=== PATIENT | male | born 1950 | race Asian ===

== ENCOUNTER 2017-09-02 01:26 | Inpatient (IN) | payer OTHER ==
[2017-09-02 02:36] LABS: Mean Corpuscular HGB CONC 33.1 g/dL (32.0-36.0); Mean Corpuscular Hemoglobin 32.3 pg (27.0-31.0); Mean Corpuscular Volume 97.6 fl (80.0-94.0); Mean Platelet Volume 6.3 fL (7.4-10.4); Platelet Count 227 thou/uL (130-400); RBC Distribution Width 11.7 % (11.5-14.5); Red Blood Cell (RBC) Count 4.03 mill/uL (4.70-6.10); White Blood Cell (WBC) Count 36.2 thou/uL (4.8-10.8)
[2017-09-02 03:04] LABS: ALT (SGPT) 32 U/L (8-55); AST (SGOT) 17 U/L (5-34); Albumin 2.7 g/dL (3.4-4.8); Alkaline Phosphatase 175 U/L (40-150); Anion Gap 14 mmol/L (10-20); BUN (Urea Nitrogen) 26 mg/dL (8.4-25.7); Bilirubin, Total 2.1 mg/dL (0.2-1.2); Calc. Creatinine Clearance 0 mL/min (70-130); Calcium 7.9 mg/dL (7.8-10.44); Carbon Dioxide 21 mmol/L (23-31); Chloride 99 mmol/L (98-107); Estimated GFR-MDRD 43; Globulin 2.7 g/dL (2.4-3.5); Glucose 137 mg/dL (80-115); Potassium 3.8 mmol/L (3.5-5.1); Protein, Total 5.4 g/dL (5.8-8.1); Sodium 130 mmol/L (136-145)
[2017-09-02 03:17] LABS: Band 28 % (5-11); MDiff Complete? YES; Monocytes 3 % (0-10); Neutrophil 69 % (42-75)
[2017-09-02] MEDS ORDERED: Bisacodyl 5 MG TAB PO PRN (03:55)
[2017-09-02] MEDS ORDERED: Acetaminophen 650 MG Suppository PR PRN (03:55)
[2017-09-02] MEDS ORDERED: Vancomycin HCl 1 GM in Premix Bag 1 BAG IVPB SCH ×2 (04:00→04:15)
[2017-09-02] MEDS ORDERED: Piperacillin/Tazobactam 4.5 GM in Sodium Chloride 0.9% 100 ML IVPB SCH (04:00)
[2017-09-02] MEDS ORDERED: Sodium Chloride 0.9% 1,000 ML IV SCH (04:00)
--- NOTE | 2017-09-02 04:59 | HP ---
PRIMARY CARE PHYSICIAN: Shae Garcia MD CHIEF COMPLAINT: Fever and weakness. HISTORY OF PRESENT ILLNESS: Mr. Cantrell is a pleasant 67-year-old gentleman who was seen at [facility] on 09/02/2017 following transfer from [facility]. He speaks only Mandarin. His daughter who was present at bedside and was diplomatic interpreter/translator for this clinical encounter. Over the last couple of days, Mr. Cantrell has had problems still worsening generalized weakness. He also reportedly had fever. He denies any dysuria or other urinary symptoms. He denies any chest pain. He reports having abdominal pain. He describes that he does not have abdominal pain at this time, but it was a sensation of bloating when he had it. REVIEW OF SYSTEMS: The following complete review of systems was negative, unless otherwise mentioned in the HPI or below: Constitutional: Weight loss or gain, ability to conduct usual activities. Skin: Rash, itching. Eyes: Double vision, pain. ENT/Mouth: Nose bleeding, neck stiffness, pain, tenderness. Cardiovascular: Palpitations, dyspnea on exertion, orthopnea. Respiratory: Shortness of breath, wheezing, cough, hemoptysis, fever or night sweats. Gastrointestinal: Poor appetite, abdominal pain, heartburn, nausea, vomiting, constipation, or diarrhea. Genitourinary: Urgency, frequency, dysuria, nocturia. Musculoskeletal: Pain, swelling. Neurologic/Psychiatric: Anxiety, depression. Allergy/Immunologic: Skin rash, bleeding tendency. PAST MEDICAL HISTORY: Significant for hypertension. PAST SURGICAL HISTORY: None. SOCIAL HISTORY: No history of tobacco use, alcohol use, or recreational drug use. CODE STATUS: I discussed his code status with his daughter. He is FULL CODE. ALLERGIES: No known drug allergies. CURRENT MEDICATIONS: He takes an antihypertensive medication, but is unable to recall the name of the medication. FAMILY HISTORY: No family history of premature coronary artery disease. PHYSICAL EXAMINATION: GENERAL: Mr. Cantrell is awake and alert, not in acute distress. VITAL SIGNS: Blood pressure is 115/79, pulse is 99, he is breathing at rate of 20 and saturating 96% on room air. He is afebrile here. At [place], he had a pulse of 117 and temperature of 100.7 degrees Fahrenheit. EYES: He has scleral icterus. No conjunctival pallor. ENT: Dry mucosal membranes. No oropharyngeal erythema or exudates. NECK: Supple, nontender, normal range of movement, trachea is midline. RESPIRATORY: Accessory muscles of breathing are not active. Chest wall movements are symmetric bilaterally. LUNGS: Clear to auscultation without wheeze, rhonchi, or crepitations. CARDIOVASCULAR: S1 and S2 are heard, regular. LUNGS: Peripheral pulses palpable. No carotid bruit, no pericardial rub. ABDOMEN: Soft, nontender, bowel sounds heard. No hepatomegaly, no splenomegaly. NEUROLOGIC: Cranial nerves II through XII intact. Deep tendon reflexes are 2+. PSYCHIATRIC: Normal mood, normal affect. Patient is oriented to person and place. MUSCULOSKELETAL: Power is 5/5 in all 4 extremities. SKIN: No rashes or subcutaneous nodules. LYMPHATIC: No cervical lymphadenopathy. LABORATORY DATA: Mr. Cantrell's labs and investigations were reviewed. He had a CT scan of the abdomen and pelvis at this emergency room. The emergency room physician has been notified by Radiology Service that the patient has an L1 transverse process, soft tissue mass. He also has a lung mass. He also has left-sided pyelonephritis. He has decreased sodium of 130, normal potassium, normal anion gap, elevated blood urea nitrogen of 26, elevated creatinine of 1.61, elevated lactic acid level of 2.3, elevated total bilirubin of 2.1, normal potassium, normal AST, normal ALT, elevated alkaline phosphatase of 175, elevated BNP of 206, leukocytosis with 36,200 white cells, of which 69% are neutrophils and 28% are bands, macrocytic anemia with hemoglobin of 13, normal platelet count and urinalysis that is positive for protein, blood, nitrite, bilirubin, and leukocyte esterase. ASSESSMENT AND PLAN: Mr. Cantrell is a pleasant 67-year-old gentleman who was seen at [facility] on 09/02/2017 following transfer from emergency room at [place]. His problem list includes: 1. Sepsis: Most likely secondary to urinary tract infection, although patient denies any urinary symptoms at this time. He will be admitted to the hospital and treated with intravenous fluids as well as broad spectrum antibiotics. He has been started on Zosyn and vancomycin, we will continue the same. 2. Abnormal liver function tests. Could be secondary to sepsis. We will recheck; if not improving, patient may need further workup. 3. Renal insufficiency: Likely prerenal, he gives history of not eating or drinking well over the last couple of days. We will provide him intravenous hydration and recheck his creatinine. 4. Hypertension: Monitor vital signs, titrate antihypertensives as needed. 5. Lung mass and L1 transverse process mass: The patient will need further workup. He received intravenous contrast for today's CT scan. We will provide him intravenous hydration and attempt CT scan of the chest on 09/03/2017 to evaluate lung mass and look for any additional evidence of tumors. 6. Hyponatremia: Provide normal saline and recheck sodium. Many thanks for allowing me to participate in your patient's care. Please feel free to contact me with any questions or concerns. LEVEL OF RISK: Moderate. LEVEL OF COMPLEXITY: Moderate. MTDD
[2017-09-02] MEDS ORDERED: ISOVUE-370 76%-LOCM 1 ML ONE (06:16)
[2017-09-02 06:32] LABS: Lactic Acid 2.8 mmol/L (0.5-2.2)
--- NOTE | 2017-09-02 08:23 | CT ---
PRELIMINARY REPORT/[facility]/EMERGENCY AFTER HOURS PROCEDURE: EXAM: CT Abdomen and Pelvis With Intravenous Contrast EXAM DATE/TIME: Exam ordered 09/02/2017 3:05 AM CLINICAL HISTORY: 67 years old, male; Pain; Abdominal pain; Generalized TECHNIQUE: Axial computed tomography images of the abdomen and pelvis with intravenous contrast. Coronal reformatted images were created and reviewed. CONTRAST: 60 mL of ISOVUE administered intravenously. COMPARISON: No relevant prior studies available. FINDINGS: Lower thorax: There is a 3.1 cm mass like structure at the RIGHT lung base which is nonspecific and m ay represent a pulmonary mass or round atelectasis. There are trace bilateral pleural effusions with dependent atelectasis. ABDOMEN: Liver: There are no focal liver lesions present. Gallbladder and bile ducts: The gallbladder is normal. There is no evidence of biliary ductal dilatio n. No calcified stones. Pancreas: There is nonspecific inflammatory stranding surrounding the tail of the pancreas probably r elated to adjacent acute renal process. No ductal dilation. Spleen: The spleen is normal. Adrenals: The adrenal glands are normal. Kidneys and ureters: There is striated nephrogram involving the LEFT kidney suspicious for acute pyel onephritis. The right kidney is normal. Stomach and bowel: The stomach is normal. No obstruction. No mucosal thickening. Appendix: A normal appendix is identified. PELVIS: Bladder: The bladder is normal. Reproductive: The prostate gland demonstrates nonspecific parenchymal calcifications and mild enlarge ment. ABDOMEN and PELVIS: Intraperitoneal space: Normal. No free air. No significant fluid collection. Bones/joints: There is an expansile soft tissue mass involving the transverse process at L1 on the RI GHT suspicious for neoplasm. There is no spinal canal involvement. No acute fracture. No dislocation. Soft tissues: Normal. Vasculature: Normal. No abdominal aortic aneurysm. Lymph nodes: Normal. No enlarged lymph nodes. IMPRESSION: 1. There is striated nephrogram involving the LEFT kidney suspicious for acute pyelonephritis. 2. There is a soft tissue mass involving the transverse process at L1 on the RIGHT suspicious for yesenia plasm. 3. There is a 3.1 cm mass like structure at the RIGHT lung base which is nonspecific and may represen t a pulmonary neoplasm or round atelectasis (less likely). Clinical correlation and comparison with p rior imaging is advised. THIS REPORT CONTAINS FINDINGS THAT MAY BE CRITICAL TO PATIENT CARE. The findings were verbally commun icated via telephone conference with Angelo Pool at 3:54 AM [employer] on 09/02/2017. The findings were a cknowledged and understood. Thank you for allowing us to participate in the care of your patient. Dictated and Authenticated by: Karthik Asher MD 09/02/2017 4:00 AM Central Time ([place] & [place]) FINAL REPORT EMERGENT AFTER HOURS CT ABDOMEN AND PELVIS WITH IV CONTRAST: DATE: 09/02/17. HISTORY: Urosepsis and elevated white blood cell count. The patient reports abdominal pain and fever. IMPRESSION: 1. Hypodense mass posteromedial aspect right lower lobe measuring 3.1 cm. This could be related to either a mass at the right lung base or rounded area of atelectasis. CT thorax is suggested. 2. Expansile lesion involving the transverse process of the L1 vertebral body worrisome for neoplast ic process. This measures 2.8 cm x 2.6 cm. In addition, there is irregularity with mixed density ar ea involving the anterior left acetabulum with sclerosis and areas of lucency. There is also an area of sclerosis involving the left ischium. Further evaluation with bone scan is recommended. Given t he multiple lesions, findings could potentially be related to metastatic disease. 3. Evidence for acute pyelonephritis. This is also adjacent left perinephric inflammatory stranding . No ureteral calculus is visualized. Follow up evaluation suggested. 4. Right kidney has a normal CT appearance. 5. Mild cardiomegaly. 6. No fluid collection is seen to suggest an abscess. 7. Tiny right pleural effusion with minimal bibasilar atelectasis. 8. Findings are in agreement with the preliminary report by [facility]. Findings were also verbally communicated via telephone to Dr. Pool by [facility]. POS: [facility]
[2017-09-02] MEDS ORDERED: Enoxaparin Sodium 40 MG/0.4 ML SYRINGE ONE (12:34)
[2017-09-02] MEDS ORDERED: hydrALAZINE 20 MG/ML VIAL ONE (15:51)
[2017-09-02] MEDS ORDERED: Acetaminophen 325 MG TAB ONE (15:58)
[2017-09-02] MEDS ORDERED: Labetalol HCl 100 MG/20 ML VIAL SLOW IVP PRN ×2 (15:59)
[2017-09-02] MEDS: Piperacillin/Tazobactam 4.5 GM in Sodium Chloride 0.9% 100 ML IVPB SCH (21:29)
[2017-09-03] MEDS: Vancomycin HCl 1 GM in Premix Bag 1 BAG IVPB SCH (00:03)
[2017-09-03 04:21] VITALS: BMI 26.2
[2017-09-03] MEDS: Piperacillin/Tazobactam 4.5 GM in Sodium Chloride 0.9% 100 ML IVPB SCH ×4 (06:12→21:31)
[2017-09-03 06:51] LABS: ALT (SGPT) 25 U/L (8-55); AST (SGOT) 14 U/L (5-34); Albumin 2.6 g/dL (3.4-4.8); Alkaline Phosphatase 166 U/L (40-150); Bilirubin, Direct 1.2 mg/dL (0.1-0.3); Bilirubin, Total 1.7 mg/dL (0.2-1.2); Protein, Total 5.8 g/dL (5.8-8.1)
[2017-09-03 06:53] LABS: Anion Gap 11 mmol/L (10-20); BUN (Urea Nitrogen) 28 mg/dL (8.4-25.7); Calc. Creatinine Clearance 41 mL/min (70-130); Calcium 8.9 mg/dL (7.8-10.44); Carbon Dioxide 22 mmol/L (23-31); Chloride 103 mmol/L (98-107); Estimated GFR-MDRD 38; Glucose 107 mg/dL (80-115); Potassium 3.4 mmol/L (3.5-5.1); Sodium 133 mmol/L (136-145)
[2017-09-03 08:12] LABS: Band 33 % (5-11); Hemoglobin 13.9 g/dL (14.0-18.0); Lymphocytes 7 % (21-51); MDiff Complete? YES; Mean Corpuscular HGB CONC 33.4 g/dL (32.0-36.0); Mean Corpuscular Hemoglobin 32.6 pg (27.0-31.0); Mean Corpuscular Volume 97.7 fl (80.0-94.0); Mean Platelet Volume 7.2 fL (7.4-10.4); Neutrophil 60 % (42-75); Platelet Count 232 thou/uL (130-400); Red Blood Cell (RBC) Count 4.26 mill/uL (4.70-6.10); White Blood Cell (WBC) Count 32.9 thou/uL (4.8-10.8)
[2017-09-03] MEDS: Enoxaparin Sodium 40 MG/0.4 ML SYRINGE SC SCH ×2 (08:49→11:07)
--- NOTE | 2017-09-03 11:26 | CT ---
CT CHEST WITH CONTRAST: TECHNIQUE: Multiple tomograms were obtained through the chest with IV enhancement. HISTORY: Followup possible lung mass seen in the right lung base on CT abdomen and pelvis 09/02/17. Comparison is made to that study. FINDINGS: There are small bilateral pleural effusions, slightly larger on the right. These have increased sinc e the 09/02/17 exam. There is bibasilar atelectasis. The focal density seen on the prior study in the right lung base appears most consistent with dense atelectasis. No definite lung mass lesion identi fied. The pleural effusions, however, do limit evaluation. There is cardiomegaly and mild vascular congestion. The lytic lesion involving the right transverse process at L1 is again noted and has bee n previously described. IMPRESSION: There are small bilateral pleural effusions, slightly larger on the right. There is bibasilar atelec tasis. No definite lung mass identified. There is cardiomegaly and mild vascular congestion. POS: [facility]
[2017-09-03] MEDS: Acetaminophen 325 MG TAB PO PRN (16:40)
--- NOTE | 2017-09-03 20:02 | PDOC.PN ---
- Subjective Encounter Start Date: 09/03/17 Encounter Start Time: 18:00 Patient seen and examined. No new complaints. No overnight events - Objective Resuscitation Status: Resuscitation Status FULL:Full Resuscitation MAR Reviewed: Yes Vital Signs & Weight: Vital Signs (12 hours) Temp Pulse Resp BP Pulse Ox 09/03/17 19:29 98.8 F 83 18 144/90 H 98 09/03/17 18:22 98.3 F 09/03/17 16:30 100.2 F H 97 20 159/99 H 99 09/03/17 11:59 97.8 F 93 14 134/93 H 98 Weight Weight 157 lb 13.616 oz I&O: 09/02/17 09/03/17 09/04/17 06:59 06:59 06:59 Intake Total 1080 Balance 1080 Result Diagrams: 09/06/17 04:56 09/06/17 04:56 Radiology Reviewed by me: Yes (CT chest - no masses) Phys Exam - Physical Examination Constitutional: NAD Respiratory: no wheezing, no rales, no rhonchi Symmetrical Cardiovascular: RRR, no rub no heaves/pulsations Gastrointestinal: soft, non-tender, no distention, positive bowel sounds Musculoskeletal: no edema Neurological: non-focal, moves all 4 limbs Psychiatric: A&O x 3 Dx/Plan - Plan DVT proph w/SCDs IMPRESSION: 1. Sepsis with acute organ dysfunction due to Left Pyelonephritis 2. Soft tissue mass involving L1 transverse process 3. HTN 4. ROLANDO vs CKD 3 5. Abn LFTs due to sepsis 6. Hypokalemia/Hyponatremia PLAN: * Start IV NS @ 75 * Cont current ATbx * Oncology following * DC Lovenox due to biopsy of the mass on Tuesday * Home BP meds on hold * Will discuss the plan with patient when we can find a gang tailer * Consult ID in AM Microbiology 09/01/17 23:00 Urine voided Urine Culture - Preliminary Gram Negative Phill Laboratory Tests 09/01/17 09/01/17 09/02/17 23:15 23:15 02:22 WBC 40.2 H* Band Neuts % (Manual) Total Bilirubin 2.8 H 2.1 H 09/02/17 09/03/17 09/03/17 02:22 05:49 05:49 WBC 36.2 H 32.9 H Band Neuts % (Manual) 28 H 33 H Total Bilirubin 1.7 H Review of Systems - Review of Systems Respiratory: negative: Cough, Dry, Shortness of Breath, Hemoptysis, SOB with Excertion, Pleuritic Pain, Sputum, Wheezing Cardiovascular: negative: chest pain, palpitations, orthopnea, paroxysmal nocturnal dyspnea, edema, light headedness - Medications/Allergies Allergies/Adverse Reactions: Allergies Allergy/AdvReac Type Severity Reaction Status Date / Time No Known Drug Allergies Allergy Verified 09/03/17 04:33 Medications: Current Medications Acetaminophen (Tylenol) 650 mg PO Q4H PRN PRN Reason: Headache/Fever or Pain Last Admin: 09/03/17 16:40 Dose: 650 mg Acetaminophen (Tylenol) 650 mg MD Q4H PRN PRN Reason: Headache/Fever or Pain Bisacodyl (Dulcolax) 10 mg PO DAILYPRN PRN PRN Reason: Constipation Hydralazine HCl (Apresoline) 10 mg SLOW IVP Q6H PRN PRN Reason: SBP Greater Than 170 Piperacillin Sod/Tazobactam (Sod 4.5 gm/ Sodium Chloride) 100 mls @ 200 mls/hr IVPB Q8HR [facility] Last Admin: 09/03/17 13:38 Dose: 100 mls Vancomycin HCl 1 gm/ Device 200 mls @ 200 mls/hr IVPB Q24HR@2359 [facility] Last Admin: 09/03/17 00:03 Dose: 200 mls Ciprofloxacin/Dextrose 400 mg/ (Device) 200 mls @ 200 mls/hr IVPB 0500,1700 [facility] Last Admin: 09/03/17 16:42 Dose: 200 mls Sodium Chloride (Normal Saline 0.9%) 1,000 mls @ 75 mls/hr IV .[id number] [facility] Labetalol HCl (Normodyne) 10 mg SLOW IVP Q4H PRN PRN Reason: SBP Greater Than 180 Miscellaneous Medication (Pharmacy To Dose) 1 each IVPB PRN PRN PRN Reason: Pharmacy to dose
[2017-09-03] MEDS: Sodium Chloride 0.9% 1,000 ML IV SCH (21:32)
[2017-09-03 23:56] LABS: Vancomycin, Trough 7.5 ug/mL
[2017-09-04] MEDS: Vancomycin HCl 1 GM in Premix Bag 1 BAG IVPB SCH (00:19)
[2017-09-04] MEDS: Acetaminophen 325 MG TAB PO PRN ×3 (00:20→21:37)
[2017-09-04 05:36] LABS: ALT (SGPT) 19 U/L (8-55); AST (SGOT) 12 U/L (5-34); Albumin 2.6 g/dL (3.4-4.8); Alkaline Phosphatase 144 U/L (40-150); Anion Gap 11 mmol/L (10-20); BUN (Urea Nitrogen) 24 mg/dL (8.4-25.7); Bilirubin, Total 1.5 mg/dL (0.2-1.2); CRP (Inflammatory) 14.25 mg/dL (= or < 0.5); Calc. Creatinine Clearance 45 mL/min (70-130); Calcium 8.5 mg/dL (7.8-10.44); Carbon Dioxide 23 mmol/L (23-31); Chloride 102 mmol/L (98-107); Estimated GFR-MDRD 42; Glucose 137 mg/dL (80-115); Magnesium 1.9 mg/dL (1.6-2.6); Protein, Total 5.6 g/dL (5.8-8.1); Sodium 133 mmol/L (136-145)
[2017-09-04 05:50] LABS: Hemoglobin 12.6 g/dL (14.0-18.0); Lymphocytes 9 % (21-51); MDiff Complete? YES; Mean Corpuscular HGB CONC 33.2 g/dL (32.0-36.0); Mean Corpuscular Hemoglobin 32.7 pg (27.0-31.0); Mean Corpuscular Volume 98.5 fl (80.0-94.0); Mean Platelet Volume 7.1 fL (7.4-10.4); Monocytes 11 % (0-10); Neutrophil 80 % (42-75); Platelet Count 209 thou/uL (130-400); Red Blood Cell (RBC) Count 3.85 mill/uL (4.70-6.10); White Blood Cell (WBC) Count 17.9 thou/uL (4.8-10.8)
[2017-09-04] MEDS: Sodium Chloride 0.9% 1,000 ML IV SCH ×3 (05:53→21:38)
[2017-09-04] MEDS: hydrALAZINE 20 MG/ML VIAL SLOW IVP PRN ×3 (05:54→23:46)
[2017-09-04] MEDS: Piperacillin/Tazobactam 4.5 GM in Sodium Chloride 0.9% 100 ML IVPB SCH ×3 (07:41→21:38)
--- NOTE | 2017-09-04 12:00 | PDOC.PN ---
- Subjective Encounter Start Date: 09/04/17 Encounter Start Time: 11:58 Patient seen at bedside. Spoke to him with the assistance/translation of RN Ana. No overnight events, no new complaints. - Objective Resuscitation Status: Resuscitation Status FULL:Full Resuscitation MAR Reviewed: Yes Vital Signs & Weight: Vital Signs (12 hours) Temp Pulse Resp BP BP Pulse Ox 09/04/17 08:23 96 09/04/17 08:00 98.2 F 88 24 H 09/04/17 07:55 164/97 H 09/04/17 06:55 98.2 F 88 24 H 169/98 H 97 09/04/17 05:54 83 176/102 H 09/04/17 05:43 97.9 F 83 16 176/102 H 98 09/04/17 00:00 99.0 F 94 18 146/91 H 97 Weight Weight 157 lb 13.616 oz I&O: 09/03/17 09/04/17 09/05/17 06:59 06:59 06:59 Intake Total 1080 990 Balance 1080 990 Result Diagrams: 09/04/17 03:55 09/04/17 03:55 Phys Exam - Physical Examination Constitutional: NAD HEENT: moist MMs Neck: no JVD Respiratory: no rales Cardiovascular: RRR Gastrointestinal: soft Musculoskeletal: pulses present Neurological: moves all 4 limbs Psychiatric: A&O x 3 Dx/Plan (1) Leukocytosis Code(s): D72.829 - ELEVATED WHITE BLOOD CELL COUNT, UNSPECIFIED Status: Acute (2) Fever Code(s): R50.9 - FEVER, UNSPECIFIED Status: Acute (3) Lumbar epidural mass Code(s): R22.2 - LOCALIZED SWELLING, MASS AND LUMP, TRUNK Status: Acute - Plan cont current plan of care, plan discussed w/ family, continue antibiotics, out of bed/ambulate, DVT proph w/SCDs * Continue with IV ABX * Suspect Leukocytosis is reactionary. * For CT guided Biopsy of L1 mass or lung mass (if consent is able to be obtained)
--- NOTE | 2017-09-04 13:06 | CON ---
DATE OF CONSULTATION: 09/03/2017 REASON FOR CONSULTATION: Leukocytosis and abnormal imaging. HISTORY OF PRESENT ILLNESS: The patient is a 67-year-old Mandarin Croatian man who speaks only Tk in Croatian who presented to the [facility] in [place] with generalized weakness. He was found to have a leukocytosis and subsequently transferred to our facility for further evaluat ion. He has no other specific complaints that can be elicited even with the assistance of an interpr eter. An evaluation during this hospitalization shows a CBC with a white blood cell count of 36.2 wi th 69 neutrophils and 28 bands. The hemoglobin is 13.0 and platelet count 227,000. Chemistries are abnormal manifested by a sodium of 130, creatinine 1.6, and BUN 26. The total bilirubin is 2.1 with normal AST and ALT. The alkaline phosphatase is 175. The albumin is 2.7. Imaging has shown no evid ence of liver disease on CT scan of the abdomen and pelvis. However, there was a 3.1 cm mass-like st ructure within the right base of the lung and a soft tissue mass with expansile destruction at L1 eliazar picious for neoplasm. I am asked to see the patient to provide further management recommendations. ALLERGIES: None. MEDICATIONS: The patient takes an antihypertensive medication; it is not available at this time. MEDICAL ILLNESS: There is a history of hypertension. PAST SURGICAL HISTORY: He has had no prior surgical procedures. SOCIAL HISTORY: He does not use alcohol, tobacco, or drugs. He does live in [place] with his w jose. A daughter has also been in attendance. REVIEW OF SYSTEMS: I was not able to obtain review of systems personally. However, review of system s available per the hospitalist physician was otherwise negative. PHYSICAL EXAMINATION: VITAL SIGNS: Temperature 97.8, pulse 93 and regular, respirations 14 and blood pressure 134/93. GENERAL: The patient is a well-developed and well-nourished man in no acute distress. He is sitting on the side of the bed and attentive during my evaluation. HEENT: The extraocular movements are intact and the pupils are equal, round and reactive to light. NECK: Supple. LUNGS: Clear. CARDIOVASCULAR: Regular rate and rhythm without murmur, rub, gallop or click. ABDOMEN: No tenderness, organomegaly, masses, bruits or ascites. EXTREMITIES: No clubbing, cyanosis or edema. SKIN: Normal. LYMPH: No adenopathy. MUSCULOSKELETAL: No active arthritis. NEUROLOGIC: No focal findings. Cranial nerves II-XII are grossly intact. LABORATORY DATA: See history of present illness. IMAGING DATA: See history of present illness. IMPRESSION: 1. Mature neutrophilic leukocytosis with no evidence of primary hematologic disorder. 2. Expansile destructive mass at L1 with soft tissue component worrisome for malignancy. RECOMMENDATIONS: I would suggest proceeding with CT-guided biopsy of the L1 if technically feasible in an effort to firmly establish a diagnosis. Thanks very much for allowing me to provide my recommendations. We will follow with you.
[2017-09-04 14:32] LABS: HBSAg Index 0.25 S/CO (0-0.99); Hep B Surf Ag Non-Reactive S/CO (NonReactive); Hep C IgG Ab Non-Reactive (NonReactive); Hep C Index 0.11 S/CO (0-0.79)
--- NOTE | 2017-09-04 18:36 | CON ---
DATE OF CONSULTATION: 09/04/2017 REASON FOR CONSULTATION: Fever and possible UTI. HISTORY OF PRESENT ILLNESS: A 67-year-old who has been in [facility] for the past 4 months visiti ng relatives in town. 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 The patient for about a month now has been feeling ill initially with some cou gh and sensation of chills and then he noticed pain in the right flank region and some sensation of a bdominal distention as well. He eventually came to the emergency room because of the persistence of symptoms, worsening weakness and initial findings with a BP of 115/79, pulse 99, O2 sat 96% and melita l temperature. In [place], his initial temperature was 100.7. Pertinent findings in physical e xam included a normal lung exam and heart. The abdomen was described as nontender. Initial laborato ry data with a white cell count of 36,000, with hemoglobin 13, MCV 97, platelets 227 and 28% bands. His creatinine was elevated at 1.61, potassium 3.8, carbon dioxide 21, calcium 7.9, bilirubin 2.1, tr ansaminases normal, alkaline phosphatase 175, CRP was 14 and albumin 2.7. Influenza nasal swab was n egative. No urinalysis is available in the record and I do not see any sample for urine cultures. T he patient had an abdomen and pelvis CT scan 2 days before this visit and this showed 3.1 mass-like s tructure right lung base, either round atelectases or pulmonary mass and inflammatory stranding in th e tail of the pancreas, probably related to the renal process and the left kidney, striation suspicio us for acute pyelonephritis and there was a soft tissue mass in the transverse processes of L1 on the right side, suspicious for neoplasm. This mass is expansile. Currently, Mr. Jose Cantrell is in the room. He was sitting up when I arrived. He had one of his relatives in the room, I think it was his and none of them spoke French and I was able to obtain translation services by one of the [facility] es in the fourth floor, Ana Moran, who kindly translated. He denies any headaches. No sore throat, odynophagia or dysphagia. He denied any mid back pain or neck pain. Denied weight loss, cough, but no sputum production. No dyspnea or chest pain. Still with some abdominal pain, which is distribute d throughout the anterior abdomen and he denied any genitourinary symptoms. No diarrhea, no bleeding elsewhere. No joint symptoms. PAST MEDICAL HISTORY: Unremarkable, has just transient illnesses for which he took [id number] medicine and herbs in [place]. ALLERGIES: No drug allergy history. FAMILY HISTORY: Noncontributory. SOCIAL HISTORY: The patient has been here in [facility] for 4 months. He is from [facility]. 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 He quit smoking 2 years ago. Used to drink occasionally. PHYSICAL EXAMINATION: VITAL SIGNS: T-max 100.2, temperature 98.2 and BP 150/103, respirations 24 and O2 sat 98%. GENERAL: Appears in no distress. SKIN: Shows no skin lesions. No lymphadenopathy. HEENT: Ocular movements are conjugate. Oral cavity with no abnormalities noted. NECK: Supple. No jugular venous distention. LUNGS: With symmetric breath sounds. A few faint crackles in the right base. HEART: S1 and S2, regular rate. No S3 or S4. ABDOMEN: With tenderness in the right flank area. No ascites, no organomegaly, no bladder distentio n. No genital abnormalities. EXTREMITIES: No joint inflammatory activity. The patient has keratosis of the distal extremities an d hands mostly. Pulse is 1+ in dorsalis pedis. Plantar responses are flexor. No clonus. NEUROLOGIC: His cognitive function appears to be intact. No focal weakness. LABORATORY AND X-RAY FINDINGS: The labs have been discussed above. The creatinine is at 1.65, which is stable, bilirubin 1.5 and the white cell count is down to 17.9, hemoglobin 12.6, platelets 209, 8 0% neutrophils. Bands have not been counted at the last CBC. There is a chest CT done on 09/03, [facility] shows small bilateral pleural effusions, bibasilar atelectases. No definite lung mass identified. ASSESSMENT: One-month duration of fever with pain in the right flank, some cough and soft tissue mas s involving the L1 transverse process and findings in the kidney. DISCUSSION: The differential diagnosis includes UTI with pyelonephritis. Unfortunately, I do not se e a sample from urine for urinalysis and culture to confirm the diagnosis yet. They may have been stevens bmitted elsewhere. In addition to that, the patient has this pain in the right flank, which is proba nunu secondary to the L1 expansile mass lesion causing radiculopathy. We will need an MRI of the lumb osacral spine with contrast to evaluate that mass lesion further. Discontinue Cipro. Continue Zosyn . Discontinue vancomycin.
[2017-09-04 23:39] LABS: Vancomycin, Trough 7.2 ug/mL
[2017-09-05] MEDS: Piperacillin/Tazobactam 4.5 GM in Sodium Chloride 0.9% 100 ML IVPB SCH ×2 (05:13→14:54)
[2017-09-05] MEDS: hydrALAZINE 20 MG/ML VIAL SLOW IVP PRN ×2 (05:17→20:20)
[2017-09-05 06:17] LABS: ALT (SGPT) 21 U/L (8-55); AST (SGOT) 20 U/L (5-34); Albumin 2.7 g/dL (3.4-4.8); Alkaline Phosphatase 173 U/L (40-150); Anion Gap 13 mmol/L (10-20); BUN (Urea Nitrogen) 15 mg/dL (8.4-25.7); Bilirubin, Total 1.9 mg/dL (0.2-1.2); Calc. Creatinine Clearance 56 mL/min (70-130); Calcium 8.7 mg/dL (7.8-10.44); Carbon Dioxide 20 mmol/L (23-31); Chloride 102 mmol/L (98-107); Estimated GFR-MDRD 54; Globulin 3.6 g/dL (2.4-3.5); Glucose 99 mg/dL (80-115); Potassium 3.1 mmol/L (3.5-5.1); Protein, Total 6.3 g/dL (5.8-8.1); Sodium 132 mmol/L (136-145)
[2017-09-05 06:26] LABS: Band 13 % (5-11); Hemoglobin 14.5 g/dL (14.0-18.0); Lymphocytes 5 % (21-51); MDiff Complete? YES; Mean Corpuscular HGB CONC 32.2 g/dL (32.0-36.0); Mean Corpuscular Hemoglobin 31.4 pg (27.0-31.0); Mean Corpuscular Volume 97.4 fl (80.0-94.0); Mean Platelet Volume 6.9 fL (7.4-10.4); Monocytes 7 % (0-10); Neutrophil 75 % (42-75); Platelet Count 242 thou/uL (130-400); RBC Distribution Width 12.4 % (11.5-14.5); Red Blood Cell (RBC) Count 4.62 mill/uL (4.70-6.10); White Blood Cell (WBC) Count 10.1 thou/uL (4.8-10.8)
[2017-09-05] MEDS ORDERED: cloNIDine 0.1 MG TAB PO PRN (06:42)
[2017-09-05] MEDS ORDERED: hydrALAZINE 20 MG/ML VIAL SLOW IVP PRN (06:42)
[2017-09-05] MEDS: Amlodipine 5 MG TAB PO SCH (08:54)
[2017-09-05] MEDS: Potassium Chloride 20 MEQ TAB PO SCH ×2 (08:55→17:00)
--- NOTE | 2017-09-05 11:36 | MRI ---
MRI OF THE LUMBAR SPINE WITH AND WITHOUT IV CONTRAST: Indication: History of L1 mass lesion. Technique: Multiplanar, multisequence MR images were obtained of the lumbar spine with and without co ntrast utilizing 7 cc of MultiHance. Comparison: CT abdomen and pelvis, 09-02-07. FINDINGS: Corresponding to the expansile lytic lesion involving the right transverse process of L1 on the francisco javier rison CT is a T1 hypointense slightly heterogeneous to hyperintense T2 soft tissue mass lesion with m ild enhancement. The lesion measures approximately 4.5 x 3.6 cm in size. The lesion does extend into the right L1 pedicle and into the right posterolateral aspect of the L1 vertebral body. There is lesi on extension into the right L1 lamina. A similar signal intensity appearing mass lesion is seen within the right aspect of the T12 vertebra measuring 1.4 cm on Image 7 of Series 8, suspicious for an additional metastatic focus. No additional focal signal abnormality or suspicious region of enhancement is seen to suggest an additional lumbar vertebral metastatic lesion. There is heterogeneous marrow signal intensity level of the lumbar spine which is likely indicative o f some underlying red marrow reconversion. There is mild facet joint degenerative change at L5-S1 without appreciable central canal or neural fo raminal narrowing. At L4-5, there is mild facet joint degenerative change and a broad based bulge inducing some mild brent ateral neural foraminal narrowing. At L3-4, there is a broad based bulge with mild facet hypertrophy. At L2-3, there is mild facet joint degenerative change without appreciable central canal or neural fo raminal narrowing. At L1-2, there is no appreciably central canal narrowing. There is some soft tissue mass extension of the lesion from the pedicle into the superior aspect of the right L1-2 neural foramina, best seen on Image 5 of Series 2 causing some encroachment on the exiting right L1 nerve. At T12-L1, there is no appreciable central canal or neural foraminal narrowing. IMPRESSION: 1. Findings suspicious for metastatic disease involving the right T12 vertebra as well as the right L 1 vertebra with extension into the right L1 transverse process and right aspect of the lamina. There is extraosseous soft tissue mass extension into the superior aspect of the right L1-2 neural foramina with encroachment of the soft tissue mass on the exiting right L1 nerve root. 2. Mild multilevel spondylosis of the lumbar spine with mild bilateral neural foraminal narrowing see n at L4-5. POS: [facility]
[2017-09-05 12:37] LABS: INR-International Normal Ratio 1.1; PTT 34.3 SEC (22.9-36.1); Prothrombin Time 14.4 SEC (12.0-14.7)
[2017-09-05] MEDS: Sodium Chloride 0.9% 1,000 ML IV SCH ×2 (12:41→20:26)
[2017-09-05] MEDS ORDERED: Midazolam HCl 2 mg/2 ml Vial ONE (13:14)
[2017-09-05] MEDS ORDERED: Fentanyl 100 MCG/2 ML VIAL ONE (13:14)
[2017-09-05] MEDS ORDERED: Sodium Bicarbonate 2.4 MEQ/5 ML ONE (13:15)
--- NOTE | 2017-09-05 16:26 | CT ---
CT GUIDED PERCUTANEOUS BIOPSY OF A EXPANSILE LYTIC LESION L1 TRANSVERSE PROCESS: 09/05/17 HISTORY: Lytic expansile lesion/soft tissue mass involving the right pedicle of the L1 vertebral body. Biopsy was requested. TECHNIQUE: After informed consent was obtained with a sagger soak, informed consent was obtained. The patient was placed on the CT scan table in the prone position. Limited noncontrasted CT scan of the L1 vertebral body with grid localizer in place was obtained. An area overlying the right L1 transverse process le yoshi was marked and then meticulously prepped and draped in the usual sterile fashion. The skin and s ubcutaneous tissues were infiltrated with buffered 1% lidocaine for local anesthesia. Small skin inci yoshi was made. A 17 gauge guide needle was advanced into the lesion and position was confirmed with three axial non contrasted CT images. Utilizing coaxial technique, a total of three 18 gauge core needle biopsy speci mens were obtained. Preliminary pathology evaluation of one of the provided core biopsy specimens dem onstrated what appeared to be malignant cells, but final pathology report is pending. Inner stylet was replaced. The needle was removed. Hemostasis was achieved with direct pressure. Padmini ent tolerated the procedure well without immediate complication. Dry sterile dressing was placed at p uncture site. IMPRESSION: Technically successful biopsy of a lytic expansile lesion involving the right L1 transverse process. POS: [facility]
--- NOTE | 2017-09-05 21:24 | PDOC.PN ---
- Subjective Encounter Start Date: 09/05/17 Encounter Start Time: 14:00 Patient seen and examined. No new complaints. No overnight events - Objective Resuscitation Status: Resuscitation Status FULL:Full Resuscitation MAR Reviewed: Yes Vital Signs & Weight: Vital Signs (12 hours) Temp Pulse Resp BP BP BP Pulse Ox 09/05/17 20:20 91 107/104 H 09/05/17 19:54 99.2 F 89 16 170/104 H 97 09/05/17 15:40 99.0 F 103 H 16 143/86 H 98 09/05/17 12:05 98.7 F 88 16 155/97 H 98 Weight Weight 157 lb 13.616 oz I&O: 09/04/17 09/05/17 09/06/17 06:59 06:59 06:59 Intake Total 1470 30 Balance 1470 30 Result Diagrams: 09/06/17 04:56 09/06/17 04:56 Phys Exam - Physical Examination Constitutional: NAD Respiratory: no wheezing, no rhonchi Cardiovascular: RRR, no rub Gastrointestinal: soft, positive bowel sounds Musculoskeletal: no edema Dx/Plan - Plan DVT proph w/SCDs IMPRESSION: 1. Sepsis with acute organ dysfunction due to Left Pyelonephritis 2. Soft tissue mass involving L1 transverse process 3. HTN 4. ROLANDO - improving 5. Abn LFTs due to sepsis 6. Hypokalemia/Hyponatremia PLAN: * ID/Onc following * Cont current Atbx * Await biopsy report * s/p MRI - metastasis * Replace electrolyes Review of Systems - Medications/Allergies Allergies/Adverse Reactions: Allergies Allergy/AdvReac Type Severity Reaction Status Date / Time No Known Drug Allergies Allergy Verified 09/03/17 04:33 Medications: Current Medications Acetaminophen (Tylenol) 650 mg PO Q4H PRN PRN Reason: Headache/Fever or Pain Last Admin: 09/04/17 21:37 Dose: 650 mg Acetaminophen (Tylenol) 650 mg [place] Q4H PRN PRN Reason: Headache/Fever or Pain Amlodipine Besylate (Norvasc) 5 mg PO DAILY [facility] Last Admin: 09/05/17 08:54 Dose: 5 mg Bisacodyl (Dulcolax) 10 mg PO DAILYPRN PRN PRN Reason: Constipation Clonidine (Catapres) 0.1 mg PO Q4H PRN PRN Reason: Systolic BP > 180 Hydralazine HCl (Apresoline) 10 mg SLOW IVP Q6H PRN PRN Reason: SBP Greater Than 170 Last Admin: 09/05/17 20:20 Dose: 10 mg Hydralazine HCl (Apresoline) 10 mg SLOW IVP Q4H PRN PRN Reason: SBP Greater Than 180 Sodium Chloride (Normal Saline 0.9%) 1,000 mls @ 75 mls/hr IV .[id number] [facility] Last Admin: 09/05/17 20:26 Dose: 1,000 mls Labetalol HCl (Normodyne) 10 mg SLOW IVP Q4H PRN PRN Reason: SBP Greater Than 180 Levofloxacin (Levaquin) 500 mg PO 0600 [facility] Potassium Chloride (K-Dur) 20 meq PO BID-[facility] Stop: 09/07/17 08:01 Last Admin: 09/05/17 17:00 Dose: 20 meq
[2017-09-06 06:33] LABS: ALT (SGPT) 40 U/L (8-55); AST (SGOT) 45 U/L (5-34); Albumin 2.5 g/dL (3.4-4.8); Alkaline Phosphatase 166 U/L (40-150); Anion Gap 12 mmol/L (10-20); BUN (Urea Nitrogen) 15 mg/dL (8.4-25.7); Bilirubin, Total 1.4 mg/dL (0.2-1.2); Calc. Creatinine Clearance 71 mL/min (70-130); Calcium 8.2 mg/dL (7.8-10.44); Carbon Dioxide 21 mmol/L (23-31); Chloride 103 mmol/L (98-107); Estimated GFR-MDRD 71; Globulin 3.2 g/dL (2.4-3.5); Glucose 96 mg/dL (80-115); Phosphorus 2.4 mg/dL (2.3-4.7); Potassium 3.2 mmol/L (3.5-5.1); Protein, Total 5.7 g/dL (5.8-8.1); Sodium 133 mmol/L (136-145)
[2017-09-06 06:41] LABS: #Eosinphils 0.1 thou/uL (0.0-0.7); #Lymphocytes 0.9 thou/uL (1.20-3.40); #Monocytes 0.9 thou/uL (0.11-0.59); #Neutrophils 5.2 thou/uL (1.40-6.50); %Basophils 0.2 % (0.0-1.0); %Eosinophils 1.1 % (0.0-10.0); %Lymphocytes 12.7 % (21.0-51.0); %Monocytes 13.2 % (0.0-10.0); %Neutrophils 72.9 % (42.0-75.0); Hemoglobin 13.9 g/dL (14.0-18.0); Mean Corpuscular HGB CONC 33.7 g/dL (32.0-36.0); Mean Corpuscular Hemoglobin 32.7 pg (27.0-31.0); Mean Corpuscular Volume 96.9 fl (80.0-94.0); Mean Platelet Volume 6.9 fL (7.4-10.4); Platelet Count 257 thou/uL (130-400); RBC Distribution Width 12.4 % (11.5-14.5); Red Blood Cell (RBC) Count 4.26 mill/uL (4.70-6.10); White Blood Cell (WBC) Count 7.1 thou/uL (4.8-10.8)
[2017-09-06] MEDS: Amlodipine 5 MG TAB PO SCH (08:44)
[2017-09-06] MEDS: Potassium Chloride 20 MEQ TAB PO SCH ×2 (08:45→18:05)
[2017-09-06] MEDS: Sodium Chloride 0.9% 1,000 ML IV SCH (11:01)
--- NOTE | 2017-09-06 14:28 | CT ---
CT GUIDED PERCUTANEOUS BIOPSY OF A EXPANSILE LYTIC LESION L1 TRANSVERSE PROCESS: 09/05/17 HISTORY: Lytic expansile lesion/soft tissue mass involving the right pedicle of the L1 vertebral body. Biopsy was requested. TECHNIQUE: After informed consent was obtained with a m1 armor crewman, informed consent was obtained. The patient was placed on the CT scan table in the prone position. Limited noncontrasted CT scan of the L1 vertebral body with grid localizer in place was obtained. An area overlying the right L1 transverse process le yoshi was marked and then meticulously prepped and draped in the usual sterile fashion. The skin and s ubcutaneous tissues were infiltrated with buffered 1% lidocaine for local anesthesia. Small skin inci yoshi was made. A 17 gauge guide needle was advanced into the lesion and position was confirmed with three axial non contrasted CT images. Utilizing coaxial technique, a total of three 18 gauge core needle biopsy speci mens were obtained. Preliminary pathology evaluation of one of the provided core biopsy specimens dem onstrated what appeared to be malignant cells, but final pathology report is pending. Inner stylet was replaced. The needle was removed. Hemostasis was achieved with direct pressure. Padmini ent tolerated the procedure well without immediate complication. Dry sterile dressing was placed at p uncture site. IMPRESSION: Technically successful biopsy of a lytic expansile lesion involving the right L1 transverse process.
--- NOTE | 2017-09-06 16:54 | PDOC.PN ---
- Subjective Encounter Start Date: 09/06/17 Encounter Start Time: 09:30 Patient seen and examined. Urinary hesitancy +. Some loose stool per RN. No overnight events - Objective Resuscitation Status: Resuscitation Status FULL:Full Resuscitation MAR Reviewed: Yes Vital Signs & Weight: Vital Signs (12 hours) Temp Pulse Resp BP BP Pulse Ox 09/06/17 11:45 98.7 F 82 20 158/96 H 98 09/06/17 08:44 98 156/102 H 09/06/17 08:05 97.6 F 98 24 H 98 09/06/17 07:40 97.6 F 98 24 H 156/102 H 98 09/06/17 05:33 96 Weight Weight 157 lb 13.616 oz I&O: 09/05/17 09/06/17 09/07/17 06:59 06:59 06:59 Intake Total 1470 30 Balance 1470 30 Result Diagrams: 09/06/17 04:56 09/06/17 04:56 Phys Exam - Physical Examination Constitutional: NAD Respiratory: no wheezing, no rhonchi Cardiovascular: RRR, no rub Gastrointestinal: soft, non-tender, positive bowel sounds Musculoskeletal: no edema Dx/Plan - Plan DVT proph w/SCDs IMPRESSION: 1. Sepsis with acute organ dysfunction due to Left Pyelonephritis 2. Soft tissue mass involving L1 transverse process - s/p biopsy 3. HTN 4. ROLANDO - improving 5. Abn LFTs due to sepsis 6. Hypokalemia/Hyponatremia 7. ?BPH PLAN: * Atbx changed to PO * ID/Onc following * Add Flomax * Cont current Atbx * Await biopsy report * Replace electrolyes Microbiology 09/01/17 23:00 Urine voided Urine Culture - Final Escherichia coli 09/01/17 23:55 Venous blood - Left Arm Blood Culture - Preliminary Gram Negative Phill 09/01/17 23:50 Venous blood - Left Arm Blood Culture - Preliminary Gram Negative Phill Review of Systems - Review of Systems Respiratory: negative: Cough, Dry, Shortness of Breath, Hemoptysis, SOB with Excertion, Pleuritic Pain, Sputum, Wheezing Cardiovascular: negative: chest pain, palpitations, orthopnea, paroxysmal nocturnal dyspnea, edema, light headedness - Medications/Allergies Allergies/Adverse Reactions: Allergies Allergy/AdvReac Type Severity Reaction Status Date / Time No Known Drug Allergies Allergy Verified 09/03/17 04:33 Medications: Current Medications Acetaminophen (Tylenol) 650 mg PO Q4H PRN PRN Reason: Headache/Fever or Pain Last Admin: 09/04/17 21:37 Dose: 650 mg Acetaminophen (Tylenol) 650 mg SD Q4H PRN PRN Reason: Headache/Fever or Pain Amlodipine Besylate (Norvasc) 5 mg PO DAILY [facility] Last Admin: 09/06/17 08:44 Dose: 5 mg Bisacodyl (Dulcolax) 10 mg PO DAILYPRN PRN PRN Reason: Constipation Clonidine (Catapres) 0.1 mg PO Q4H PRN PRN Reason: Systolic BP > 180 Hydralazine HCl (Apresoline) 10 mg SLOW IVP Q6H PRN PRN Reason: SBP Greater Than 170 Last Admin: 09/05/17 20:20 Dose: 10 mg Hydralazine HCl (Apresoline) 10 mg SLOW IVP Q4H PRN PRN Reason: SBP Greater Than 180 Sodium Chloride (Normal Saline 0.9%) 1,000 mls @ 75 mls/hr IV .[id number] [facility] Last Admin: 09/06/17 11:01 Dose: 1,000 mls Labetalol HCl (Normodyne) 10 mg SLOW IVP Q4H PRN PRN Reason: SBP Greater Than 180 Levofloxacin (Levaquin) 500 mg PO 0600 [facility] Last Admin: 09/06/17 05:25 Dose: 500 mg Potassium Chloride (K-Dur) 20 meq PO BID-[facility] Stop: 09/07/17 08:01 Last Admin: 09/06/17 08:45 Dose: 20 meq
[2017-09-06] MEDS ORDERED: Sodium Chloride 0.9% 1,000 ML IV SCH (16:57)
--- NOTE | 2017-09-06 19:11 | PRG ---
DATE OF SERVICE: 09/06/2017 SUBJECTIVE: Again, I could not interview the patient because of language barrier. PHYSICAL EXAMINATION: VITAL SIGNS: T-max 98.7, blood pressure 160/90, pulse 89, respirations 20, O2 saturation 99%. GENERAL: Appears no distress. LUNGS: Clear. HEART: S1, S2, regular rate. ABDOMEN: Soft. MUSCULOSKELETAL: Moves all extremities equally. No bladder distention. LABORATORY DATA AND IMAGING DATA: White cell count down to 7.1, hemoglobin 13.9, platelets 257. Sod ium 133, creatinine 1.05, which has improved from admission, alkaline phosphatase 166. The patient h ad a CT biopsy of the lesion and vertebra. ASSESSMENT AND DISCUSSION: Fever, pain in right flank, cough, soft tissue mass L1 through a transver se process and possible pyelonephritis. The patient has improved from pyelonephritis. We will not h ave microbiology to guide our antimicrobials and we will probably recommend transitioning to oral chas nolone as hoping for continuing response. Wait on the pathology of the biopsy.
[2017-09-06] MEDS ORDERED: Saccharomyces boulardii 250 MG CAP PO SCH (21:00)
[2017-09-06] MEDS ORDERED: Tamsulosin HCl 0.4 MG CAP PO SCH (21:00)
[2017-09-06] MEDS: Acetaminophen 325 MG TAB PO PRN (21:25)
[2017-09-07 06:29] LABS: Anion Gap 10 mmol/L (10-20); BUN (Urea Nitrogen) 12 mg/dL (8.4-25.7); Calc. Creatinine Clearance 74 mL/min (70-130); Calcium 8.5 mg/dL (7.8-10.44); Carbon Dioxide 22 mmol/L (23-31); Chloride 103 mmol/L (98-107); Estimated GFR-MDRD 74; Glucose 131 mg/dL (80-115); Magnesium 1.8 mg/dL (1.6-2.6); Potassium 3.2 mmol/L (3.5-5.1); Sodium 132 mmol/L (136-145)
[2017-09-07] MEDS ORDERED: Potassium Chloride 20 MEQ TAB PO SCH (08:00)
[2017-09-07] MEDS: Amlodipine 5 MG TAB PO SCH (11:11)
[2017-09-07 12:29] VITALS: BP 135/87; TEMP 98.1
--- NOTE | 2017-09-07 17:15 | DIS ---
DATE OF DISCHARGE: 09/07/2017 DISCHARGE DISPOSITION: Home. FOLLOWUP: 1. Follow up with primary care physician, Dr. Kaufman in 1 week. 2. Follow up with Dr. Jiang next week. ALLERGIES: No known drug allergies. The patient was seen and examined on the day of discharge. Denies any new complaints. No chest pain , shortness of breath, palpitations reported. INPATIENT CONSULTANTS: Infectious Disease, Dr. Retana; Oncology, Dr. Jiang. DISCHARGE MEDICATIONS: 1. Levofloxacin 500 mg daily, #7. 2. Amlodipine 5 mg daily. 3. Potassium chloride 20 mEq daily, #7. 4. Flomax 0.4 mg at bedtime. TESTS PENDING AT DISCHARGE: Biopsy report from the L1 transverse process. BRIEF HOSPITAL COURSE: The patient is a 67-year-old male, who presented to the hospital with f ever with generalized weakness. His workup in the emergency room was consistent with pyelonephritis. A CT scan of the abdomen done on 09/02/2017 showed left-sided pyelonephritis. It also showed L1 tr ansverse process, soft tissue mass. He was started on broad spectrum antibiotics. His blood culture as well as urine cultures were positive for E. coli, sensitive to levofloxacin. He will be discharg ed home on oral Levaquin. The patient was found to have the soft tissue mass in the L1 transverse process. A CT scan of the ch est was negative for acute findings except for bibasilar atelectasis with small bilateral pleural eff usion. MRI of the lumbar spine on 09/05/2017 showed findings suspicious for metastatic disease invol ving the right T12 vertebra as well as a right L1 vertebra with extension into the right L1 transvers e process. Please refer to the MRI report for details. He underwent a biopsy of this mass, the resu lts of which is pending at this time. He will follow up with Dr. Jiang next week for the results. FINAL DIAGNOSES: 1. Sepsis with acute organ dysfunction due to left-sided acute pyelonephritis. 2. L1 transverse process, soft tissue mass, status post biopsy, results pending at this time. 3. Hypertension. 4. Acute kidney injury on admission with a creatinine of 1.61, resolved. His creatinine on the day of discharge is 1.01. 5. Chronic kidney disease, stage 2. 6. Hypokalemia. 7. Hyponatremia. 8. Abnormal liver function tests of unclear etiology. 9. Questionable benign prostatic hypertrophy with urinary symptoms. The patient has been started on Flomax. 10. Chronic anemia. 11. Escherichia coli bacteremia. SIGNIFICANT LABORATORIES: 1. PSA was 9.7. 2. CEA was 40.4. 3. Sodium on the day of discharge is 132. 4. Lowest potassium was 3.0. 5. Total bilirubin on admission was 2.1, at discharge is 1.4. Alkaline phosphatase on admission 175 . 6. WBC on admission was 36.2, at discharge 7.1. 7. A 28% bandemia on admission, at discharge 0% bandemia. Total time coordinating the discharge of this patient was 35 minutes.
== END 2017-09-07 15:34 | disposition home or self-care (01) | DRG 854 ==
LOC: ERS 01:26 → ERHOLD 03:40 → ONC 18:19
PROVIDERS: ADMIT Internal Medicine; ATTEND Internal Medicine
PROC: 0QB03ZX Excision of Lumbar Vertebra, Percutaneous Approach, Diagnostic (ICD-10-PCS; principal; 2017-09-05)
DX: A41.9 Sepsis, unspecified organism (principal); N17.9 Acute kidney failure, unspecified; J90 Pleural effusion, not elsewhere classified; C79.51 Secondary malignant neoplasm of bone; C34.90 Malignant neoplasm of unspecified part of unspecified bronchus or lung; N10 Acute pyelonephritis; E87.1 Hypo-osmolality and hyponatremia; B96.20 Unspecified Escherichia coli [E. coli] as the cause of diseases classified elsewhere; J98.11 Atelectasis; R65.20 Severe sepsis without septic shock; M79.9 Soft tissue disorder, unspecified; I12.9 Hypertensive chronic kidney disease with stage 1 through stage 4 chronic kidney disease, or unspecified chronic kidney disease; N18.2 Chronic kidney disease, stage 2 (mild); E87.6 Hypokalemia; R79.89 Other specified abnormal findings of blood chemistry; N40.1 Benign prostatic hyperplasia with lower urinary tract symptoms; D53.9 Nutritional anemia, unspecified
CPT/HCPCS: 20225; 36415; 71260; 72158; 74177; 77012; 80048; 80053; 80076; 80202; 82378; 83605; 83735; 84100; 84153; 85025; 85610; 85730; 86140; 86803; 87040; 87340; 88305; 88313; 88333; 88341; 88342; 96361; 96365; J0360; J0744; J1650; J2250; J2543; J3010; J3370; J7050

== ENCOUNTER 2017-10-07 09:06 | Outpatient (CLI) | payer OTHER ==
--- NOTE | 2017-10-07 14:34 | NM ---
BONE SCAN: TECHNIQUE: The patient was given 32 mCi of Technetium labeled MDP IV. Whole body skeleton images were obtained. HISTORY: Lung cancer with secondary bone metastasis. COMPARISON: Correlation is made to recent MRI of lumbar spine 09/05/17 which described evidence of metastatic invol vement of the T12 and L1 vertebrae. FINDINGS: 1. There is a focus of activity in the right scapular wing consistent with metastatic focus. On the posterior images, there is a focus of activity in the posterior lower cervical spine midline which i s suspicious. 2. There are numerous foci of activity in the thoracic spine and involving the costovertebral juncti on of multiple thoracic ribs. 3. Abnormal high activity at the T12-L1 level consistent with metastasis noted on recent MRI. 4. Abnormal activity seen in the left pelvis, particularly involving the left ischium surrounding th e left acetabulum and extending into both superior and inferior rami on the left. Several foci of ac tivity in the more medial left ileum near the SI joint. 5. Focus of abnormality activity in the proximal left femur in the region of the lesser trochanter c onsistent with metastatic lesion. IMPRESSION: There are multiple abnormal foci of osseous activity consistent with metastatic disease as described above. POS: [facility]
== END 2017-10-07 09:07 | disposition home or self-care (01) ==
LOC: NM 09:06
PROVIDERS: ATTEND Radiology Radiation Oncology
DX: C34.90 Malignant neoplasm of unspecified part of unspecified bronchus or lung (principal); C79.51 Secondary malignant neoplasm of bone
CPT/HCPCS: 78306; A9503

== ENCOUNTER 2018-01-26 07:58 | Outpatient (CLI) | payer OTHER ==
--- NOTE | 2018-01-26 10:42 | CT ---
CONTRAST ENHANCED CT IMAGES OF THE CHEST AND ABDOMEN AND PELVIS: DATE: 01/26/18. COMPARISON: Comparison is made to previous exam from 09/03/17. FINDINGS: Contrast-enhanced CT of the chest demonstrates decreased bilateral pleural effusions. Previously not ed bibasilar areas of consolidation as a result. There is an approximately 2.3 x 1.6 cm ill-defined pulmonary parenchymal mass in the medial posterior aspect of the right lower lobe. This appears to h ave significantly decreased compared to the area of consolidation seen in this area on the previous c omparison CT. No definite evidence of mediastinal or hilar lymphadenopathy is seen. Previously lytic lesion on the right 4th rib appears to now be sclerotic. Numerous other lytic lesions have also become sclerotic. There is a small sclerotic lesion in the T1 vertebral body. Additional larger left T9 vertebral me tastatic lesion is also seen. There is also a sclerotic lesion seen in the left posterior 7th rib. Additional tiny metastatic lesions which were not sclerotic are also seen at the T11 vertebral body. Previously noted lytic mass in the region of the right L1 transverse process and pedicle appears to h ave resolved. There is now sclerosis seen in this vertebral level and within the bone itself. Numerous left pelvic metastatic lesion seen involving the left iliac vein, much of the left acetabulu m, as well as the left superior and inferior pubic rami. Numerous sclerotic metastatic lesions are a lso seen in the proximal left femoral neck and proximal shaft. The liver and spleen, gallbladder, and pancreas are unremarkable. Adrenal glands and kidneys are unr emarkable. Previous area of heterogeneous density in the left kidney appears to have resolved and li gael related represented acute pyelonephritis. No definite evidence of periaortic lymphadenopathy is seen. The small bowel and colonic loops are un remarkable. No significant evidence of pelvic lymphadenopathy seen. IMPRESSION: 1. Resolved bilateral pleural effusion. Marked decrease in the size of the right lower lobe lung ma ss. 2. Multiple lytic bony lesions are now sclerotic in appearance. No evidence of newly developed lyti c bone lesions seen. POS: [facility]
[2018-01-26] MEDS ORDERED: Iopamidol 370 76% 100 ML VIAL ONE (11:39)
--- NOTE | 2018-01-26 13:56 | NM ---
NUCLEAR MEDICINE WHOLE BODY BONE SCAN: HISTORY: Secondary malignant neoplasm of bone. COMPARISON: CT same day. FINDINGS: Whole body bone scan is performed after the intravenous administration of 32 mCi Technetium 99m-MDP. Adequate skeletal uptake of radiotracer. The kidneys and urinary bladder are visualized. There are no new abnormal areas of radiotracer uptake in the skeleton. There is increased uptake of the right scapular region of the thoracic spine, posterior element lesion. There is slight decreased uptake wi thin the left ischium and superior pubic ramus and acetabulum. IMPRESSION: 1. No new osseous metastasis. 2. Areas of increased uptake within the previously described which may be sequelae of treatment resp onse. POS: [facility]
== END 2018-01-26 07:59 | disposition home or self-care (01) ==
LOC: CT 07:58
PROVIDERS: ATTEND Internal Medicine Hematology & Oncology
DX: C34.90 Malignant neoplasm of unspecified part of unspecified bronchus or lung (principal); C79.51 Secondary malignant neoplasm of bone
CPT/HCPCS: 71260; 74177; 78306; A9503

== ENCOUNTER 2018-06-26 08:59 | Outpatient (CLI) | payer OTHER ==
[2018-06-26] MEDS ORDERED: Iopamidol 370 76% 100 ML VIAL ONE (12:00)
--- NOTE | 2018-06-26 13:18 | CT ---
CT CHEST WITH IV CONTRAST CT ABDOMEN WITH IV CONTRAST CT PELVIS WITH IV CONTRAST: Date: 06/26/18 HISTORY: Lung cancer with bone metastases. COMPARISON: 01/26/18. FINDINGS: The 2.3 x 1.6 cm pulmonary parenchymal nodule in the medial posterior aspect of the right lower lobe is stable. No new lung masses are seen. No mediastinal, hilar, or axillary mass or lymphadenopathy is noted. A small right pleural effusion has developed in the interim. There are vascular calcifications without evidence of aneurysmal dilatation of the thoracoabdominal a ramiro. Ectasia of the ascending thoracic aorta is again seen. No pericardial or left pleural effusions are identified. There has been interval development of a 7.0 mm new small focus of decreased attenua tion in the medial aspect of the right lobe of the liver. Calcifications in the anterior liver are ag ain seen. The spleen, pancreas, adrenal glands, and kidneys are unremarkable. The prostate is enlarge d. No free air, free fluid, or lymphadenopathy seen in the abdomen or pelvis. There are small bilater al fat-containing inguinal hernia. Multiple sclerotic foci in the skeleton are again seen, including the sternum, ribs, right scapula, spine, pelvis, and left proximal femur. IMPRESSION: Interval development of a small right pleural effusion and a 7.0 mm low density lesion in the right l obe of the liver since 01/26/18. The remainder of the exam is otherwise stable. POS: [facility]
--- NOTE | 2018-06-26 14:54 | NM ---
WHOLE BODY BONE SCAN: 06/26/18 HISTORY: Lung cancer with bone mets. RADIOPHARMACEUTICAL: 32 millicuries technetium 99m-MDP injected intravenously. COMPARISON: Bone scan dated 01/26/18. CORRELATION: CT chest, abdomen and pelvis from today. FINDINGS: Foci of increased uptake in the skeleton are again seen including the right anterior fourth rib, righ t scapula, thoracolumbar spine, left acetabulum, superior pubic ramus and ischium. Tracer excretion b y the kidneys. There is also focus of increased uptake in the sternum. IMPRESSION: Stable multifocal osseous metastatic disease. POS: [facility]
== END 2018-06-26 09:00 | disposition home or self-care (01) ==
LOC: CT 08:59
PROVIDERS: ATTEND Internal Medicine Hematology & Oncology
DX: C34.90 Malignant neoplasm of unspecified part of unspecified bronchus or lung (principal); C79.51 Secondary malignant neoplasm of bone; J90 Pleural effusion, not elsewhere classified; K76.9 Liver disease, unspecified
CPT/HCPCS: 71260; 74177; 78306; 82565; A9503

== ENCOUNTER 2018-09-18 10:21 | Outpatient (CLI) | payer OTHER ==
--- NOTE | 2018-09-18 15:42 | CT ---
CONTRAST ENHANCED CT IMAGES CHEST, ABDOMEN, AND PELVIS: History: Lung cancer with bone mets. Technique: Contrast enhanced CT images of the chest, abdomen, and pelvis were obtained after the admi nistration of IV and oral contrast. FINDINGS: CT images of the chest demonstrate some ectasia or the ascending aorta measuring up to 4.3 cm, unchan ged since the previous exam. Right sided sclerotic 4th rib lesion seen. In addition numerous lower ce rvical, multiple thoracic, lumbar and pelvic metastatic lesions also seen. There are also areas of sc lerotic changes seen in the anterior aspect of the right scapula as well as midsternum. This is francisco javier tible with extensive skeletal metastases, also noted on patient's previous CT from May 2018. In a ddition, an area of sclerotic change is also seen involving the proximal left femur. There is interval development of a small right sided pleural effusion which has increased slightly si nce the previous comparison exam. No significant evidence of mediastinal hilar or axillary lymphadenopathy seen. A small area of hypodensity seen in the posterior aspect of the right hepatic lobe unchanged since previous exam. Stable metastatic disease cannot be excluded. The spleen is unremarkable. Gallbladder and pancreas are unremarkable. Adrenal glands and kidneys are unremarkable. No evidence of periaortic lymph adenopathy is seen. The pelvis is unremarkable. IMPRESSION: 1. Extensive osseous metastatic lesions. 2. Increasing right sided pleural effusion. 3. Previously noted right lower lobe area of parenchymal opacity appears to be less pronounced than a djacent areas of atelectasis. POS: [facility]
[2018-09-18] MEDS ORDERED: ISOVUE-370 76%-LOCM 1 ML ONE (16:54)
== END 2018-09-18 10:22 | disposition home or self-care (01) ==
LOC: BICCT 10:21
PROVIDERS: ATTEND Internal Medicine Hematology & Oncology
DX: C34.90 Malignant neoplasm of unspecified part of unspecified bronchus or lung (principal); C79.51 Secondary malignant neoplasm of bone; J90 Pleural effusion, not elsewhere classified; J98.11 Atelectasis
CPT/HCPCS: 71260; 74177; 82565

== ENCOUNTER 2018-11-14 10:31 | Day surgery (SDC) | payer OTHER ==
[2018-11-14] MEDS ORDERED: Lidocaine 1% (PF) 30 ML VIAL ONE (10:50)
--- NOTE | 2018-11-14 11:14 | HP ---
HISTORY OF PRESENT ILLNESS: This is a 68-year-old [place] gentleman who is referred to here for an abnormal x-ray showing a large right pleural effusion. He speaks no German. He came with a daughter who also spoke a little German, had to get a service loss control consultant on the phone to get information. Apparently, the patient was having some vague right-sided chest pain and difficulty breathing. He had an x-ray done on 11/09/[address] Jiang who asked the patient to come to the office for an evaluation and a thoracentesis. He has extensive osseous metastatic disease. Apparently, the patient has known lung cancer. His CAT scan showed otherwise an extensive right lower lung parenchymal opacity/density, extensive multiple metastases. He had lab done, which showed a normal BUN and creatinine, normal lab values. He was denying any coughing, but he clearly has orthopnea. PAST MEDICAL HISTORY: Hypertension. CT-guided biopsy of the mass confirmed a metastatic adenocarcinoma as ordered by Dr. Jiang. He has received radiation and was started on Tagrisso on 10/18/2017. PAST SURGERIES: None except for the CT-guided biopsy. MEDICATIONS: As noted above. Current medications: 1. Amlodipine 5. 2. Oxybutynin ER 10. 3. Tagrisso 80. SOCIAL HISTORY: Tobacco; longstanding history of tobacco, smoking a pack a day for 48 years, still smoking according to the daughter. ALLERGIES: NONE. REVIEW OF SYSTEMS: Otherwise unremarkable. PHYSICAL EXAMINATION: GENERAL: He appears to be in mild distress. VITAL SIGNS: Saturations 97 on room air, pulse CHEST: Decreased breath sounds in the entire right lung. Left lung unremarkable. CARDIAC: No gallops. No murmurs. ABDOMEN: Soft. NEUROLOGIC: He is awake, alert, and responsive. Appears appropriate. IMPRESSION AND PLAN: 1. Massive pleural effusion, metastatic adenocarcinoma. 2. Hypertension. Outpatient thoracentesis performed. More than likely, he is going to need a pleural catheter for long-term drainage. Job ID: [id number]
--- NOTE | 2018-11-14 12:18 | OP ---
DATE OF PROCEDURE: 11/14/2018 PROCEDURE PERFORMED: Thoracentesis. INDICATION: Massive right pleural effusion. DESCRIPTION OF PROCEDURE: After informed consent, the left posterior thorax was cleaned with chlorhexidine, 1% Xylocaine infiltrated into the right 9th intercostal space in the midscapular line and the pleural cavity was entered in. It was felt to be rather thick and initially, 20 mL of gross bloody effusion removed. Thereafter, using an 8-[place] catheter, a total of 2000 mL was removed. At the end of the procedure, the patient has had significant chest pain. Therefore, the procedure was terminated. Clearly, he has additional pleural effusion left. Pleural effusion sent for appropriate studies including cytology. This is clearly metastatic disease. He is going to have recurrence of his pleural effusion. This finding will be transmitted to Dr. Teodoro Jiang, his primary oncologist. The patient tolerated the procedure well. BRIEF DISCHARGE NOTE: The patient tolerated the procedure well. Results of the pleural effusion cytology will be available to his primary care physician. Job ID: [id number]
--- NOTE | 2018-11-14 12:31 | RAD ---
PORTABLE CHEST 1 VIEW: DATE: 11/14/2018. TIME: 11:59 a.m. HISTORY: Thoracentesis. FINDINGS/IMPRESSION: Comparison is made to the exam of 11/09/2018. Interval improvement with reduction in size of the right-sided pleural effusion is seen since 11/10/19 19. No pneumothorax is seen. There is opacification in the right lower hemithorax. The heart size is stable. The aorta is tortuous. The left lung is clear. POS: [facility]
[2018-11-14 12:34] LABS: Fluid, Triglycerides 52 mg/dL (Not Available); Pleural Fluid, Amylase 353 U/L (Not Available); Pleural Fluid, Glucose Less than 20 mg/dL; Pleural Fluid, LDH 2207 U/L (Not Available); Pleural Fluid, Protein 4.5 g/dL
[2018-11-14 13:06] LABS: BF Color Red; Body Fluid Source Thoracentesis Fluid; Clarity Cloudy/Turbid (Clear); Tube # 3
[2018-11-14 13:07] LABS: RBC Background Count 0.001; RBC Count-Automated 280000 /cumm; WBC/NonHematic-Auto 533 /cumm
[2018-11-14 13:27] LABS: Cell Count Non Hematic 98 %; Lymphocytes 2 %
== END 2018-11-14 12:38 | disposition home or self-care (01) ==
LOC: SDC/OP 10:31
PROVIDERS: ATTEND Internal Medicine Pulmonary Disease
PROC: 0W993ZX Drainage of Right Pleural Cavity, Percutaneous Approach, Diagnostic (ICD-10-PCS; principal; 2018-11-14)
DX: C34.90 Malignant neoplasm of unspecified part of unspecified bronchus or lung (principal); J91.0 Malignant pleural effusion; I10 Essential (primary) hypertension; Z92.3 Personal history of irradiation; F17.210 Nicotine dependence, cigarettes, uncomplicated; Z79.2 Long term (current) use of antibiotics; Z79.899 Other long term (current) drug therapy
CPT/HCPCS: 32554; 71045; 82150; 82945; 83615; 83986; 84157; 84478; 85060; 87070; 87077; 87116; 87205; 87206; 88112; 88305; 89051; J1642; J2001

== ENCOUNTER 2018-12-12 10:04 | Outpatient (CLI) | payer OTHER ==
--- NOTE | 2018-12-12 11:12 | RAD ---
TWO VIEWS CHEST: Date: 12-12-18 Provided Clinical History: Dyspnea. FINDINGS: Comparison 11-14-18. Interval development of opacification of the majority of the right hemithorax. No shift of the medias tinal contents rightward. There may be slight left shift of the trachea. Patchy parenchymal opacity a t the left lung base may be present. There is no evidence for pneumothorax. IMPRESSION: 1. Development of near total opacification of the right hemithorax. This presumably reflects large pl eural effusion. 2. Possible left basilar airspace disease. POS: [facility]
== END 2018-12-12 10:05 | disposition home or self-care (01) ==
LOC: RAD 10:04
PROVIDERS: ATTEND Internal Medicine Pulmonary Disease
DX: R06.00 Dyspnea, unspecified (principal)
CPT/HCPCS: 71046

== ENCOUNTER 2018-12-20 05:53 | Day surgery (SDC) | payer OTHER ==
[2018-12-19 11:06] VITALS: BMI 24.3
[2018-12-20] MEDS ORDERED: Fentanyl 100 MCG/2 ML VIAL ONE ×2 (06:31→06:56)
[2018-12-20 06:54] LABS: #Basophils 0.1 thou/uL (0.0-0.2); #Eosinphils 0.1 thou/uL (0.0-0.7); #Monocytes 0.8 thou/uL (0.11-0.59); #Neutrophils 8.1 thou/uL (1.40-6.50); %Basophils 0.8 % (0.0-1.0); %Eosinophils 0.7 % (0.0-10.0); %Lymphocytes 9.9 % (21.0-51.0); %Monocytes 7.7 % (0.0-10.0); %Neutrophils 80.9 % (42.0-75.0); Hemoglobin 12.6 g/dL (14.0-18.0); Mean Corpuscular HGB CONC 31.9 g/dL (32.0-36.0); Mean Corpuscular Hemoglobin 30.2 pg (27.0-31.0); Mean Corpuscular Volume 94.6 fL (78.0-98.0); Mean Platelet Volume 5.9 fL (7.4-10.4); Platelet Count 462 thou/uL (130-400); RBC Distribution Width 12.1 % (11.5-14.5); Red Blood Cell (RBC) Count 4.17 mill/uL (4.70-6.10)
[2018-12-20] MEDS ORDERED: Midazolam HCl 2 mg/2 ml Vial ONE (06:56)
[2018-12-20] MEDS ORDERED: Bupivacaine HCl 0.5%/Epinephrine 1:200,000/PF 30 ml Vial ONE (07:24)
[2018-12-20 07:32] LABS: Anion Gap 13 mmol/L (10-20); BUN (Urea Nitrogen) 9 mg/dL (8.4-25.7); Calc. Creatinine Clearance 87 mL/min (70-130); Calcium 9.7 mg/dL (7.8-10.44); Carbon Dioxide 28 mmol/L (23-31); Chloride 98 mmol/L (98-107); Estimated GFR-MDRD Greater than 90; Glucose 99 mg/dL (80-115); Potassium 3.8 mmol/L (3.5-5.1); Sodium 135 mmol/L (136-145)
--- NOTE | 2018-12-20 08:26 | RAD ---
Chest AP view INDICATION: Postoperative patient status post right Pleurx catheter placement COMPARISON: Prior chest radiograph dated December 12, 2018. FINDINGS: LUNGS: There is improved aeration in the right upper lobe and right lower lobe. The left lung is marybeth r. CARDIAC [place] AND PULMONARY VASCULATURE: Moderate cardiomegaly is stable. Pulmonary vasculature appears within normal limits. PLEURAL SPACE: The large right-sided pleural effusion has diminished. There is a small to moderate re sidual loculated right-sided pleural effusion remaining. There is been interval placement of a right-sided pleural catheter projecting up to the level of the upper to mid hemithorax junction. No p neumothorax is demonstrated. VISUALIZED UPPER ABDOMEN: Unremarkable. OSSEOUS STRUCTURES: No acute osseous abnormality. IMPRESSION: Interval placement of a right-sided thoracostomy tube with decrease in the large right pl eural effusion. A small to moderate residual loculated pleural effusion remains. There is improved aeration of the right lung, particularly the right lower lobe. Residual areas suspected atelectasis r emain within a large portion of the right lung. Continued radiographic follow-up is recommended. Stable cardiomegaly.
[2018-12-20] MEDS ORDERED: PROPOFOL 200 MG/20 ML VIAL ONE (15:54)
--- NOTE | 2018-12-21 18:03 | OP ---
DATE OF PROCEDURE: 12/20/2018 PREOPERATIVE DIAGNOSIS: Malignant right effusion. POSTOPERATIVE DIAGNOSIS: Malignant right effusion. PROCEDURE: Placement of a right thoracic PleurX catheter. ANESTHESIA: IV sedation with local anesthesia. PROCEDURE: After prepping and draping the right chest and upper abdomen, an adequate IV sedation had been obtained, 1% lidocaine was used to infiltrate the chest wall in the anterior axillary line and a small needle was used to aspirate bloody fluid. Following this, Marcaine with epinephrine was used to infiltrate the tunnel in exit site, which was opened with an 11 blade. The catheter was then brought through the exit site and into the site where the thoracic cavity was to be entered, which had been opened with an 11 blade. Angiocath was then inserted into the pleural space, followed by wire dilator and peel-away sheath. The catheter was then passed through the peel-away sheath. It was connected to suction and about 1000 mL of bloody fluid was removed. The incision was closed with a single Vicryl suture and sealed and dressing was applied to the exit site. The patient tolerated the procedure. Job ID: [id number]
--- NOTE | 2018-12-22 07:10 | EKG ---
Test Reason : PREOP Blood Pressure : / mmHG Vent. Rate : 107 BPM Atrial Rate : 107 BPM P-R Int : 148 ms QRS Dur : 094 ms QT Int : 358 ms P-R-T Axes : 052 035 044 degrees QTc Int : 477 ms Sinus tachycardia Otherwise normal ECG No previous ECGs available Confirmed by MAURICE ALSTON ([id number]) on 12/22/2018 7:09:27 AM Referred By: NAILA Confirmed By:MAURICE ALSTON
== END 2018-12-20 09:31 | disposition home or self-care (01) ==
LOC: SDC 05:53
PROVIDERS: ATTEND Thoracic Surgery (Cardiothoracic Vascular Surgery)
PROC: 0W9930Z Drainage of Right Pleural Cavity with Drainage Device, Percutaneous Approach (ICD-10-PCS; principal; 2018-12-20)
DX: C34.31 Malignant neoplasm of lower lobe, right bronchus or lung (principal); C79.51 Secondary malignant neoplasm of bone; J91.0 Malignant pleural effusion; I10 Essential (primary) hypertension; N40.0 Benign prostatic hyperplasia without lower urinary tract symptoms; Z87.891 Personal history of nicotine dependence; Z79.899 Other long term (current) drug therapy
CPT/HCPCS: 36415; 71045; 80048; 85025; 93005; 93010; C1729; J0670; J0690; J2250; J2704; J3010